=== PATIENT | male | born 1990 | race Hispanic/Latino ===

== ENCOUNTER → 2018-04-24 | Outpatient (CLI) | payer BC | LOC: GMAH 11:51 | PROVIDERS: ATTEND Family Medicine | DX: R79.9 Abnormal finding of blood chemistry, unspecified (principal) ==

== ENCOUNTER → 2018-04-24 | Outpatient (CLI) | payer BC ==
--- NOTE | 2018-04-24 13:43 | US ---
EXAM DESCRIPTION: Liver: ULTRASOUND. CLINICAL HISTORY: ABN LIVER FUNCTION STUDIES COMPARISON: None. TECHNIQUE: Transabdominal scannin-dimensional and Doppler modes. Large patient body habitus. FINDINGS: Gallbladder: normal size, shape, echogenicity; no intraluminal stones or sludge. No fluid around the gallbladder. No wall thickening. 2.1 mm. Non-tender with transducer pressure. Common bile duct: caliber 4.1 mm within normal limits. Liver: Increased echogenicity; contour liver capsule smooth where seen. No fluid around the liver. Intrahepatic biliary ducts normal caliber. Doppler hepatopedal flow portal vein. Less than 1 cm. Long axis right lobe 14.2 cm. Pancreas: Not well visualized. Duct not seen. Right kidney: long axis measures 11.4 cm. Normal echogenicity. Normal cortical thickness. No hydronephrosis IMPRESSION: Patient has large body habitus. Steatosis of the liver with normal vascularity and ducts. Difficult visualization posterior to the liver. Smooth capsule. No ascites. Normal gallbladder and common bile duct. Pancreas not well visualized. Duct not seen. Electronically signed by: Brennan Molina MD 04/24/2018 1:42 PM EDUCATION OFFICER
== END ==
LOC: RAD 10:31
PROVIDERS: ATTEND Family Medicine
DX: R94.5 Abnormal results of liver function studies (principal); K76.0 Fatty (change of) liver, not elsewhere classified